=== PATIENT | female | born 1990 | race Caucasian/White ===

== ENCOUNTER 2020-11-09 07:22 | Emergency (ER) | payer MEDICAID, SELFPAY ==
[~2020-11-09] VITALS: Ht 162.6 cm; Wt 66.7 kg
[2020-11-09 07:22] VITALS: BP_SYST 120
--- NOTE | 2020-11-09 07:22 | NUR ---
BROUGHT TO OUTSIDE TRIAGE TENT AND TRIAGED. WILL ASSUME CARE.
--- NOTE | 2020-11-09 07:35 | NUR ---
PT STATES THAT SHE STARTED GETTING SICK ON 11/04 WITH SORE THROAT, CONGESTION, AND LOSING VOICE. NOW WITH SLIGHT COUGH, FATIGUE, AND SLIGHT SOB WITH EXERTION. PT STATES SHE WAS + FOR COVID IN JANUARY, STATES SHE IS FULLY VACCINATED.
--- NOTE | 2020-11-09 07:36 | NUR ---
DR KINNEY OUTSIDE TO TENT FOR EVALUATION
--- NOTE | 2020-11-09 08:17 | NUR ---
Patient given written and verbal discharge instructions and verbalizes understanding. ER MD discussed with patient the results and treatment provided. Patient in stable condition. ID arm band removed. Rx of NONE given. Patient educated on pain management and to follow up with PMD. Pain Scale 0/10. Opportunity for questions provided and answered. Medication side effect fact sheet provided.
== END 2020-11-09 08:17 | disposition home or self-care (01) ==
LOC: SED 07:22
DX: J06.9 Acute upper respiratory infection, unspecified (principal); Z20.822 Contact with and (suspected) exposure to COVID-19
CPT/HCPCS: 99283; C9803; U0003